=== PATIENT | female | born 1990 | race Caucasian/White ===

== ENCOUNTER 2022-05-11 19:27 | Emergency (ER) | payer SELFPAY ==
[2022-05-11 20:17] LABS: BASOPHIL 1.1 % (0-2); EOSINOPHIL 0.1 % (0-5); HGB 13.2 g/dl (12.5-16.0); LYMPHOCYTE 35.2 % (15-48); MCHC 33.8 g/dL (32.0-36.0); MCV 91.5 fL (78.0-100.0); MONOCYTE 13.4 % (0-12); MPV 9.3 fL (6.0-9.5); NEUTROPHIL 49.4 % (41-80); NRBC 0; PLT 242 K/uL (150-400); RBC 4.26 M/uL (4.20-5.40); RDW 14.6 % (11.5-14.0); WBC 7.1 K/uL (4.0-10.5)
[2022-05-11 20:24] LABS: BILIRUBIN NEGATIVE (NEGATIVE); BLOOD NEGATIVE Ery/uL (NEGATIVE); CLARITY CLEAR (CLEAR); COLOR YELLOW (YELLOW); GLUCOSE (U) NORMAL (NORMAL); LEUKOCYTES NEGATIVE Leu/uL (NEGATIVE); NITRITE NEGATIVE (NEGATIVE); PROTEIN NEGATIVE (NEGATIVE); SPECIFIC GRAVITY <=1.005 (1.001-1.030); UROBILINOGEN 0.2 mg/dL (0.2-1.0)
[2022-05-11 20:41] LABS: BUN/CREAT RATIO (CALC) 9.6 RATIO; CREATININE 0.73 mg/dL (0.51-0.95); POTASSIUM 2.6 mmol/L (3.5-5.1)
[2022-05-11 21:22] LABS: MAGNESIUM 1.6 mg/dL (1.8-2.4); PHOSPHORUS 4.7 mg/dL (2.6-4.7)
[2022-05-14 21:07] LABS: CHLAMYDIA TRACHOMATIS, NAA Negative (Negative); NEISSERIA GONORRHOEAE, NAA Negative (Negative)
== END 2022-05-11 21:45 | disposition left against medical advice (07) ==
LOC: FER 19:27
PROVIDERS: Nurse Practitioner Family
DX: R30.0 Dysuria (principal); R10.32 Left lower quadrant pain; E87.6 Hypokalemia; I10 Essential (primary) hypertension; Z53.29 Procedure and treatment not carried out because of patient's decision for other reasons
CPT/HCPCS: 36415; 80048; 81003; 83735; 84100; 85025; 87491; 87591; 99283; J7030